=== PATIENT | female | born 1925 | race Caucasian/White ===

== ENCOUNTER 2017-02-04 18:04 | Inpatient (IN) | payer OTHER ==
[~2017-02-04] VITALS: Ht 157.5 cm; Wt 56.2 kg
--- NOTE | ~2017-02-04 | O ---
[facility] [place] [address] OPERATIVE REPORT Name: DUNCAN POWERS Room #: 422-P [facility] IN M.R.#: [id number] Admission: 02/04/17 Attend Phys: Nikita Quiñones MD Discharge: Date of : [birth year] Report #: [id number] THIS REPORT FOR: //name// CC: Casey Quiñones Jessica Tomas DATE OF SERVICE: 02/05/2017 PREOPERATIVE DIAGNOSIS: Left femoral neck fracture. POSTOPERATIVE DIAGNOSIS: Left femoral neck fracture. PROCEDURE: Left proximal femoral hemiarthroplasty. SURGEON: Casey Santamaria MD INDICATIONS: This 89-year-old female, is still alert and functioning fairly independently in an assisted living setting. She has some balance issues and fell injuring the left hip. X-rays confirmed a displaced unstable femoral neck fracture. I have discussed with the patient and her son the nature of the injury and treatment options. They prefer to go ahead with a cemented hemiarthroplasty. DESCRIPTION OF PROCEDURE: The patient was taken to the operating room where she was placed under general anesthesia. Prophylactic intravenous antibiotics were administered. She was turned to the right lateral decubitus position. The left hip and thigh were meticulously prepped and draped. A slightly curving posterolateral skin incision was made and carried through fascia exposing the posterior aspect of the hip joint. The short external rotators and capsule were taken down and tagged with several #1 Tevdek sutures. The femoral neck was found to be fractured and unstable. The head was removed and measured at 45 mm in diameter. The neck was trimmed down to an appropriate level. The canal was then opened with reamers and hand broaches. The Lawson and Nephew hip system was utilized. The size 12 stem seemed to fit nicely. A trial reduction was performed and a 45-mm head with a 0 neck length fit nicely and resulted in good alignment, range of motion, and stability. The trial components were removed. A cement restrictor was placed in the canal. Methyl methacrylate cement was mixed and injected into the canal. The Lawson [employer] Nephew size 12 cemented femoral stem was then inserted, placing this in about 15 degrees of anteversion. Excess cement was removed from around its margin. A 45-mm unipolar head was then applied with a neutral +0 mm neck length sleeve and this was inserted on to the Huitron taper and impacted into position. It seated nicely and appeared to be secure. The hip was reduced and alignment, range of motion and stability and leg length were assessed and felt to be satisfactory. The short external rotators and capsule were then repaired back to bone using the #[address] [address] OPERATIVE REPORT Name: DUNCAN POWERS Room #: 422-P [facility] IN M.R.#: [id number] Admission: 02/04/17 Attend Phys: Nikita Quiñones MD Discharge: Date of : [birth year] Report #: [id number] sutures, passed through drill holes in the greater trochanter. A single Hemovac was placed exiting through a separate stab incision. The fascia was then closed with multiple #1 Vicryl sutures. The subcutaneous tissues were closed with 0 Monocryl. The skin was closed with skin lizett. A sterile dressing was applied. The patient was awakened and returned to recovery room in good condition. <ELECTRONICALLY SIGNED> By: Casey Santamaria MD 02/06/17 1015 1710 1822 Casey Santamaria MD /nt
--- NOTE | ~2017-02-04 | HC ---
[facility] [place] [address] CONSULTATION Name: DUNCAN POWERS Room #: 422-P [facility] IN .R.#: [id number] Admission: 02/04/17 Attend Phys: Nikita Quiñones MD Discharge: Date of : [birth year] Report #: [id number] THIS REPORT FOR: //name// CC: Casey Pulidoie Genoveva DATE OF SERVICE: 02/05/2017 HISTORY OF PRESENT ILLNESS: This still alert, active and healthy 89-year-old female is a resident of [facility]. She is ambulatory, but usually uses a walker for balance. She fell injuring the left hip yesterday. X-rays confirm a displaced and unstable femoral neck fracture. She sustained minor contusion to her face, but no other significant injuries. At the time of my evaluation, she is alert and oriented and understands the situation well. She states she has no other areas of significant discomfort aside from the left hip. OBJECTIVE: She has minor bruising at the left cheek and periorbital region. She has good movement of the neck and back without subjective discomfort. She has good movement of both upper extremities at the shoulder, elbow, wrist and hand without discomfort. The right lower extremity reveals good movement of the hip and knee without joint discomfort nor any deformity. Left lower extremity is shortened and rotated consistent with a proximal femur fracture. Distal neurologic and vascular status appeared to be intact. X-rays of the pelvis and left hip reveal a femoral neck fracture with displacement. In summary, this patient has a new displaced and unstable left femoral neck fracture. She is otherwise reasonably healthy. I think surgical repair with a hemiarthroplasty would be the best option. I have discussed this with the patient and she seems to understand well. She would like to press ahead whenever surgical scheduling will allow. Pending medical clearance and/or scheduling, we may be able to proceed today with left hip hemiarthroplasty. <ELECTRONICALLY SIGNED> By: Casey Santamaria MD 02/05/17 1714 0759 0810 Casey Santamaria MD /nt
--- NOTE | ~2017-02-04 | EKG ---
[address] [place] [address] ELECTROCARDIOGRAM REPORT Name: DUNCAN POWERS Room #: 422-P ADM IN M.R.#: [id number] Admission: 02/04/17 Attend Phys: Nikita Quiñones MD Discharge: Date of : [birth year] Report #: [id number] THIS REPORT FOR: //name// [facility] ED Test Date: 2017-02-04 Test Time: 19:21:12 Pat Name: DUNCAN POWERS Department: Room: 422 Gender: F [employer] Supervisor: VINCENT : 1925 Requested By: Lily Lopez Order Number: [id number] MD: Bayron Bay Measurements Intervals [place] Rate: 66 P: MD: QRS: 97 QRSD: 138 T: 39 QT: 437 QTc: 458 Interpretive Statements Sinus rhythm Left bundle branch block No previous ECG available for comparison Electronically Signed On 02-06-2017 8:44:15 CDT by Bayron Bay [email or web address] <ELECTRONICALLY SIGNED> By: Bayron Bay MD, [facility] 02/06/17 0844 192 20 Bayron Bay MD, FACC /EPI
--- NOTE | ~2017-02-04 | EKG ---
[address] [address] ELECTROCARDIOGRAM REPORT Name: DUNCAN POWERS Room #: 422-P ADM IN M.R.#: [id number] Admission: 02/04/17 Attend Phys: Nikita Quiñones MD Discharge: Date of : [birth year] Report #: [id number] THIS REPORT FOR: //name// [facility] Test Date: 2017-02-05 Test Time: 08:48:27 Pat Name: DUNCAN POWERS Department: Room: 422 Gender: F Safety Analyst: AKIDEN : 1925 Requested By: Jarred Lyles Order Number: [id number] MD: Bayron Bay Measurements Intervals [place] Rate: 74 P: 108 AR: 187 QRS: 94 QRSD: 136 T: 62 QT: 439 QTc: 487 Interpretive Statements Atrial-sensed ventricular-paced complexes No further analysis attempted due to paced rhythm No previous ECG available for comparison Electronically Signed On 02-06-2017 8:48:55 CDT by Bayron Bay [email or web address] <ELECTRONICALLY SIGNED> By: Bayron Bay MD, [facility] 02/06/17847 7 7 Bayron Bay MD, [facility] /EPI
--- NOTE | ~2017-02-04 | D ---
[facility] [place] [address] DISCHARGE SUMMARY Name: DUNCAN POWERS Room #: 422-P ADM IN .R.#: [id number] Admission: 02/04/17 Attend Phys: Nikita Quiñones MD Discharge: Date of : [birth year] Report #: [id number] THIS REPORT FOR: //name// CC: Casey Pulidoie Genoveva DATE OF SERVICE: 02/08/2017 HISTORY OF PRESENT ILLNESS: The patient is an 89-year-old female who came to the Emergency Room after she fell. The patient was found to have left hip fracture. Please refer to the admission H and P for details. HOSPITALIZATION COURSE: The patient was hospitalized. Orthopedic surgeon was consulted. The patient had left hip hemiarthroplasty on . The patient recovered well after surgery. She had mild postop anemia, with hemoglobin of 7.7 at this time, from 11.8 on admission. Currently, the patient's pain is controlled and she participates in the physical therapy. The patient will be transferred to the [facility] facility. DISCHARGE DIAGNOSIS: Left hip fracture as a result of fall, status post surgery on . SECONDARY DIAGNOSES: Include hypothyroidism due to thyroidectomy, hypertension, status post pacemaker placement and status post hysterectomy. DISCHARGE MEDICATIONS: Please refer to the medication reconciliation list. FOLLOWUP PLAN: 1. Follow up in Orthopedic Surgery Clinic as advised. 2. Follow up with the primary care physician in 1-2 weeks. By: [id number] Akiko Torres MD /nt
[2017-02-04 18:06] VITALS: BP 155/82
[2017-02-04 19:53] LABS: HEMATOCRIT 34.3 % (37.0-47.0); HEMOGLOBIN 11.8 gm/dL (12.0-15.0); MCHC 34.5 g/dL (28.0-37.0); PLATELET COUNT 249 thou/uL (150-400); RBC 3.81 mil/uL (4.20-5.00); RDW 13.7 % (10.5-14.5); WBC 10.2 thou/uL (4.0-11.0)
[2017-02-04 19:54] LABS: MANUAL DIFF YES
[2017-02-04 19:57] VITALS: BP 176/68
[2017-02-04 20:03] LABS: CALCIUM 9.3 mg/dL (8.5-10.1); POTASSIUM 4.4 mmol/L (3.5-5.1)
[2017-02-04 20:09] LABS: APTT 27.1 Seconds (24.5-32.8); PROTIME 10.3 Seconds (9.3-11.4)
[2017-02-04 20:13] LABS: ABSOLUTE NEUTROPHILS 8.5 thou/uL (1.4-8.2); TOTAL CELL COUNT 100
[2017-02-04 20:14] LABS: ANISOCYTOSIS 1+; POLYCHROMASIA OCCASIONAL
[2017-02-04 20:23] VITALS: BP 176/68
[2017-02-04 22:40] VITALS: BP 166/72
[2017-02-04] MEDS ORDERED: HYDROCHLOROTH12.5 M1 PO (23:55)
[2017-02-05] VITALS (7 sets, daily range): BP systolic 132–160; BP diastolic 58–76
[2017-02-05] MEDS ORDERED: HYDROCHLOROTH12.5 M1 PO (00:14)
[2017-02-05] MEDS ORDERED: COZAAR 50 MG TA50 M2 PO (00:16)
[2017-02-05] MEDS ORDERED: MOBIC7.5 MG PO (00:17)
[2017-02-05] MEDS ORDERED: KLOR-CON 1010 MEQ PO (00:18)
[2017-02-05] MEDS ORDERED: XALATAN2.5 ML OPHTHALMIC (00:20)
[2017-02-05] MEDS ORDERED: LEVOTHYROXINE100 MC1 PO (00:26)
[2017-02-05] MEDS ORDERED: METOPROLOL SUCC50 MG PO (00:29)
[2017-02-05 20:35] LABS: HEMATOCRIT 28.2 % (37.0-47.0); HEMOGLOBIN 9.8 gm/dL (12.0-15.0); MCH 31.5 pg (26.0-34.0); MCHC 34.9 g/dL (28.0-37.0); MCV 90.2 fL (80.0-100.0); RBC 3.12 mil/uL (4.20-5.00); RDW 13.4 % (10.5-14.5)
[2017-02-06 04:30] VITALS: BP 159/89
[2017-02-06 06:20] LABS: HEMATOCRIT 24.4 % (37.0-47.0); HEMOGLOBIN 8.3 gm/dL (12.0-15.0); MCH 31.3 pg (26.0-34.0); MCHC 34.3 g/dL (28.0-37.0); MCV 91.2 fL (80.0-100.0); RBC 2.67 mil/uL (4.20-5.00); RDW 13.6 % (10.5-14.5); WBC 8.5 thou/uL (4.0-11.0)
[2017-02-06 07:34] VITALS: BP 103/50
[2017-02-06 16:12] VITALS: BP 98/50
[2017-02-06 16:46] VITALS: BP 139/84
[2017-02-06 19:52] VITALS: BP 126/61
[2017-02-07] VITALS (7 sets, daily range): BP systolic 90–112; BP diastolic 44–60
[2017-02-07 06:18] LABS: ABSOLUTE NEUTROPHILS 5.9 thou/uL (1.4-8.2); BASOPHILS 0.7 % (0.0-2.0); HEMATOCRIT 21.2 % (37.0-47.0); HEMOGLOBIN 7.5 gm/dL (12.0-15.0); MCHC 35.2 g/dL (28.0-37.0); MCV 90.8 fL (80.0-100.0); MONOCYTES 8.5 % (1.0-8.0); PLATELET COUNT 164 thou/uL (150-400); POLYS 75.8 % (36.0-66.0); RBC 2.34 mil/uL (4.20-5.00); RDW 13.5 % (10.5-14.5); WBC 7.8 thou/uL (4.0-11.0)
[2017-02-07 06:21] LABS: MANUAL DIFF NO
[2017-02-07 06:30] LABS: ALBUMIN 2.1 g/dL (3.4-5.0); CALCIUM 6.8 mg/dL (8.5-10.1); MAGNESIUM 1.7 mg/dL (1.8-2.4); POTASSIUM 3.6 mmol/L (3.5-5.1); TOTAL BILIRUBIN 0.5 mg/dL (<0.1-1.0); TOTAL PROTEIN 5.2 g/dL (6.4-8.2)
[2017-02-08 03:25] VITALS: BP 149/73
[2017-02-08 06:19] LABS: CALCIUM 7.2 mg/dL (8.5-10.1); CREATININE 0.8 mg/dL (0.6-1.0); POTASSIUM 3.6 mmol/L (3.5-5.1)
[2017-02-08 08:06] VITALS: BP 131/58
[2017-02-08 10:10] LABS: HEMATOCRIT 22.3 % (37.0-47.0); HEMOGLOBIN 7.7 gm/dL (12.0-15.0)
[2017-02-08] MEDS ORDERED: XARELTO10 MG PO (10:40)
[2017-02-08] MEDS ORDERED: HYDROCODONE-AP1 EAC6 PO (10:40)
[2017-02-08 15:26] VITALS: BP 145/45
[2017-02-08 19:47] VITALS: BP 149/65; BP 149/91
[2017-02-09 04:30] VITALS: BP 145/98
[2017-02-09 07:53] VITALS: BP 155/79
== END 2017-02-09 15:38 | DRG 470 ==
LOC: ER 18:04 → EROBS 19:42 → 4E 19:42 → EROBS 20:23 → 4E 21:25
PROVIDERS: Emergency Medicine; Internal Medicine Endocrinology, Diabetes & Metabolism; Nurse Practitioner Family; Orthopaedic Surgery
PROC: 0SRS0J9 Replacement of Left Hip Joint, Femoral Surface with Synthetic Substitute, Cemented, Open Approach (ICD-10-PCS; principal; 2017-02-05)
DX: S72.002A Fracture of unspecified part of neck of left femur, initial encounter for closed fracture (principal); E03.9 Hypothyroidism, unspecified; I10 Essential (primary) hypertension; H40.9 Unspecified glaucoma; K21.9 Gastro-esophageal reflux disease without esophagitis; D63.8 Anemia in other chronic diseases classified elsewhere; Z79.899 Other long term (current) drug therapy; Z90.710 Acquired absence of both cervix and uterus; Z95.0 Presence of cardiac pacemaker
CPT/HCPCS: 10183; 50010; 50101; 50382; 50414; 51057; 51130; 51225; 51412; 53000; 53368; 56521; 56525; 56527; 62110; 62900; 70005